=== PATIENT | female | born 1950 | race African-American/Black ===

== ENCOUNTER 2018-09-03 13:32 | Emergency (ER) | payer MEDICARE, MEDICAID ==
[~2018-09-03] VITALS: Ht 165.1 cm; Wt 69.0 kg
[2018-09-03 13:36] VITALS: BP 176/106
[2018-09-03] MEDS ORDERED: BACITRACIN ZINC OINT UDPKT TOP ONE (16:00)
[2018-09-03] MEDS ORDERED: ACETAMINOPHEN 500MG TABLET PO ONE (16:00)
[2018-09-03] MEDS ORDERED: TETANUS, DIPHTHERIA, PERTUSSIS VAC/PF 0.5ML (>7YR OLD) IM ONE (16:00)
== END 2018-09-03 18:01 | disposition home or self-care (01) ==
LOC: ER 16:54
DX: S61.357A Open bite of left little finger with damage to nail, initial encounter (principal); I10 Essential (primary) hypertension; Z98.890 Other specified postprocedural states; W54.0XXA Bitten by dog, initial encounter; Y93.89 Activity, other specified; Y92.89 Other specified places as the place of occurrence of the external cause
CPT/HCPCS: 73130; 90471; 90715; 99283